=== PATIENT | male | born 1965 ===

== ENCOUNTER → 2018-10-20 | Outpatient (CLI) | payer BC ==
[~2018-10-20] MED LIST: CEPH500 PO; CYCL10 PO; LEVSOD50 PO; NAPR550 PO; OXYACE5T PO; RXCYCL10 PO; SULTRIDS PO
== END | disposition home or self-care (01) ==
LOC: LAB SHORT 15:03 → PLD 15:03
DX: D48.5 Neoplasm of uncertain behavior of skin (principal)
CPT/HCPCS: 88304